=== PATIENT | female | born 1950 | race Caucasian/White ===

== ENCOUNTER → 2024-04-01 | Outpatient (CLI) | payer MEDICARE, SELFPAY ==
--- NOTE | 2024-04-01 07:13 | DI.MRI.S_ITS ---
PROCEDURE: MR HEAD/BRAIN WO CON INDICATIONS: Mild cognitive impairment. Medications for Alzheimer's. TECHNIQUE: Noncontrast axial T1 spin echo, axial T2 fast spin echo, sagittal and axial FLAIR, coronal T2 fast spin echo, axial gradient echo, axial diffusion and ADC through the brain. COMPARISON: None. FINDINGS: Image quality: Excellent. CSF Spaces: Basal cisterns are patent. No extra-axial fluid collections. Ventricles are normal in size and shape. Brain: No intracranial masses or hemorrhage. Mild, diffuse cerebral volume loss without pronounced volume loss involving the parietal or temporal lobes. House/white matter interface is normal. Brainstem appears normal. Diffusion-weighted images demonstrate no acute infarct. Small, chronic lacunar infarcts involving the right margin of the corpus callosum with surrounding gliosis. Small chronic lacunar infarct in the left frontal centrum semiovale. Mild periventricular and subcortical white matter chronic microvascular ischemic changes. Normal intravascular flow voids are present. Skull and face: Calvarium has normal marrow signal. Orbits appear normal. Sinuses: Sinuses and mastoids are clear. IMPRESSION: No acute intracranial disease process. Small chronic lacunar infarcts involving the right margin of the corpus callosum. 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 Recommend correlation for clinical criteria. Mild, diffuse cerebral volume loss. Mild periventricular and subcortical white matter chronic microvascular ischemic change. Dictated by: Sussy العراقي MD, PhD on 04/01/2024 at 9:45 Approved by: Sussy العراقي MD, PhD on 04/01/2024 at 9:56
== END ==
PROVIDERS: Referring Provider Psychiatry & Neurology Vascular Neurology; Visit Provider Psychiatry & Neurology Vascular Neurology
DX: G31.84 Mild cognitive impairment of uncertain or unknown etiology; G30.9 Alzheimer's disease, unspecified
CPT/HCPCS: 70551